=== PATIENT | female | born 1955 | race Caucasian/White ===

== ENCOUNTER 2016-11-23 10:59 | Emergency (ER) | payer OTHER ==
[~2016-11-23 10:59] MED LIST: AMLODIPINE-BEN1 EAC7 PO; ASPIR 8181 M1 PO; BENAZEPRIL HCL20 M2 PO; COUMADIN1 M1 PO; COUMADIN2.5 M1 PO; FISH OIL 1,0001 EA10 PO; K-TAB ER10 MEQ PO; LIPITOR40 M1 PO; LOPRESSOR50 M1 PO; LOVENOX60 MG/0.1 SQ; PERCOCET 5-3251 EACH PO; PLAVIX75 M1 PO; TIKOSYN PO
[2016-11-23 12:04] LABS: BASO % 0.3 % (0-2); EOS % 10.9 % (0-7); EOSINOPHIL ABSOLUTE COUNT 0.8 tho/cmm (0.0-0.7); HCT-HEMATOCRIT 40.5 % (34.0-49.0); HGB-HEMOGLOBIN 13.8 gm/dl (12.0-15.5); IMMATURE GRANULOCYTES ABSOLUTE 0.02 tho/cmm (0-0.03); IMMATURE GRANULOCYTES PERCENT 0.3 % (0-0.3); LYMPH % 15.9 % (20-45); LYMPH ABSOLUTE COUNT 1.1 tho/cmm (0.8-4.5); MCH (MEAN CORPUSCULAR HGB) 34.7 pg (28.0-32.0); MCHC MEAN CORPUSCULAR HGB CONC 34.1 % (32.0-36.0); MCV (MEAN CELL VOLUME) 101.8 fl (82.0-96.0); MEAN PLATELET VOLUME 10.3 cmc (9.4-12.4); MONO % 4.8 % (0-12); MONOCYTE ABSOLUTE COUNT 0.3 tho/cmm (0.0-1.2); NEUTROPHIL ABSOLUTE COUNT 4.9 tho/cmm (1.6-8.0); NEUTROPHIL-AUTOMATED 4.9 tho/cmm (1.6-8.0); NEUTROPHILS % 67.8 % (40-80); PLATELET COUNT 167 tho/cmm (150-450); RED BLOOD COUNT 3.98 mil/cmm (4.00-5.20); RED CELL DISTRIBUTION WIDTH 16.9 % (12.4-16.4); WHITE BLOOD COUNT 7.2 tho/cmm (4.0-10.0)
[2016-11-23 12:16] LABS: ANION GAP 11 mmol/L (0-20); BLOOD UREA NITROGEN 14 mg/dl (6-24); CALCIUM 8.8 mg/dl (8.5-10.5); CARBON DIOXIDE-VENOUS 29 mmol/L (22-32); CHLORIDE 103 mmol/l (96-110); CREATININE 0.76 mg/dl (0.50-1.10); GLUCOSE 145 mg/dL (70-110); SODIUM 139 mmol/L (135-145); eGFR VALUE FOR BLACK >90 mL/Min
[2016-11-23 13:25] LABS: URINE APPEARANCE CLOUDY; URINE BILIRUBIN SMALL (NEG); URINE BLOOD LARGE (NEG); URINE COLOR BROWN; URINE GLUCOSE (UA) NEGATIVE (NEG); URINE KETONE MODERATE (NEG); URINE LEUKOCYTE ESTERASE POSITIVE (NEG); URINE NITRITE NEGATIVE (NEG); URINE PROTEIN MODERATE (NEG); URINE SPECIFIC GRAVITY 1.025 (1.003-1.030)
[2016-11-23 13:32] LABS: URINE AMORPHOUS 3+; URINE BACTERIA 1+; URINE RBC FULL FIELD /[HPF] (0-5)
[2016-11-23] MEDS ORDERED: COMPAZINE10 MG PO (13:45)
[2016-11-23] MEDS ORDERED: PERCOCET 5-3251 EACH PO (13:45)
[2016-11-23] MEDS ORDERED: MACROBID 100 M100 M1 PO (13:45)
== END 2016-11-23 13:54 ==
LOC: EDMED 10:59
PROVIDERS: Emergency Medicine
DX: N23 Unspecified renal colic (principal); R82.71 Bacteriuria; I25.10 Atherosclerotic heart disease of native coronary artery without angina pectoris; Z95.5 Presence of coronary angioplasty implant and graft; Z90.49 Acquired absence of other specified parts of digestive tract; Z79.899 Other long term (current) drug therapy